=== PATIENT | male | born 1990 | race Caucasian/White ===

== ENCOUNTER 2018-07-01 08:33 | Emergency (ER) | payer OTHER ==
[~2018-07-01] VITALS: Ht 180.3 cm; Wt 90.0 kg
[2018-07-01] MEDS ORDERED: IV NORMAL SALINE 1,000ML 1,000 ML IV SCH (09:15)
[2018-07-01] MEDS ORDERED: IOHEXOL 240 MG/ML 50ML VIAL. ONE (09:27)
[2018-07-01] MEDS ORDERED: IOHEXOL 300 MG/ML 75 ML VIAL. IV ONE (10:00)
[2018-07-01 10:12] LABS: BASO % 0 % (0-3); EOS # 0.2 x10^3/uL (0.0-0.7); EOS % 4 % (0-3); HEMATOCRIT 43.4 % (39.0-53.0); HEMOGLOBIN 15.1 g/dL (13.0-17.5); LYMPH # 1.1 x10^3/uL (1.0-4.8); LYMPH % 22 % (24-48); MEAN CORPUSCULAR HEMOGLOBIN 29 pg (25-35); MEAN CORPUSCULAR HGB CONC 35 g/dL (31-37); MEAN CORPUSCULAR VOLUME 83 fL (79-100); MONO # 0.3 x10^3/uL (0.0-1.1); MONO % 5 % (0-9); NEUT # 3.7 x10^3uL (1.8-7.7); NEUT % 69 % (31-73); PLATELET COUNT 218 x10^3/uL (140-400); RED BLOOD COUNT 5.24 x10^6/uL (4.30-5.70); RED CELL DISTRIBUTION WIDTH 13.6 % (11.5-14.5); WHITE BLOOD COUNT 5.3 x10^3/uL (4.0-11.0)
[2018-07-01 10:22] LABS: AMORPHOUS SEDIMENT,UR PRESENT /HPF; BACTERIA,URINE 0 /HPF (0-FEW); BILIRUBIN,URINE NEG (NEG); CLARITY,URINE CLOUDY; COLOR,URINE YELLOW; GLUCOSE,URINE NEG (NEG); NITRITE,URINE NEG (NEG); RBC,URINE RARE /HPF (0-2); SQUAMOUS EPITHELIAL CELL,UR OCC /LPF; UROBILINOGEN,URINE 1 mg/dL (0.2 mg/dL); WBC,URINE RARE /HPF (0-4)
[2018-07-01 10:31] LABS: ALBUMIN 4.4 g/dL (3.4-5.0); ALBUMIN/GLOBULIN RATIO 1.7 (1.0-1.7); CALCIUM 9.2 mg/dL (8.5-10.1); CREATININE 1.3 mg/dL (0.7-1.3); GFR 66.7; POTASSIUM 3.9 mmol/L (3.5-5.1); TOTAL BILIRUBIN 0.4 mg/dL (0.2-1.0)
--- NOTE | 2018-07-01 10:48 | RAD ---
CT STUDY OF THE ABDOMEN AND PELVIS WITH CONTRAST Clinical indications: Abdominal pain and rectal bleeding. COMPARISON: None available. TECHNIQUE: After IV infusion of 75 cc of Omnipaque 300, helical CT scanning of the abdomen and pelvis was performed. GI contrast was administered per mouth. PQRS compliance Statement One or more of the following individualized dose reduction techniques were utilized for this study: 1. Automated exposure control 2. Adjustment of the mA and/or kV according to patient size 3. Use of iterative reconstruction technique FINDINGS: The spleen is mildly enlarged measuring 14.8 cm in length. The liver is normal. The gallbladder and pancreas are normal. No extra hepatic biliary ductal dilatation is seen. Nonobstructing punctate stones of the right kidney are seen. No renal mass or hydronephrosis or hydroureter or ureteral stone is evident. The urinary bladder wall is smooth. No focal aneurysmal dilatation of the abdominal aorta is seen. No enlarged abdominal or pelvic lymphadenopathy is evident. The appendix is normal. Terminal ileum is unremarkable. No obstructive bowel pattern is evident. No free air or free fluid or mesenteric edema is seen. Segmental wall thickening of the colon is evident. No lung base consolidation is evident. No lytic process is seen. IMPRESSION: There is segmental wall thickening of the colon from the splenic flexure on down into the rectosigmoid region. Also, there is short segmental wall thickening of the ascending colon just proximal to the hepatic flexure. The findings may be seen with inadequate distention of the colon or may be seen with colitis if there are clinical findings of such. Mild splenomegaly. Electronically signed by: Keny Tobias MD (07/01/2018 10:45 AM) [email or web address]
[2018-07-01] MEDS ORDERED: RANI150T21 PO ×2 (11:22→11:45)
--- NOTE | 2018-07-01 11:22 | PHYS DOC ---
Adult General Chief Complaint Chief Complaint: RECTAL BLEED [facility] HPI Patient is a 28 year old male male who presents with complaining of bloody stool. Patient states he had 2 episodes of rectal bleeding since 4 AM with large amount of bright red blood without pain. Patient complaining of lower abdominal discomfort and cramping pain and rated his pain 7/10. Patient denies nausea and vomiting, dizziness, chest pain, shortness of breath and palpitation. Patient states he had episodes of rectal bleeding since November of last year that repeated once or more often per week. Patient states he supposed to have colonoscopy and endoscopy while he was in [place] but was not performed. Patient states he has bowel movements once a day without constipation or diarrhea. Patient states he lost about 7 pounds for the last few weeks. Review of Systems Review of Systems Constitutional: Denies fever or chills [] Eyes: Denies change in visual acuity, redness, or eye pain [] HENT: Denies nasal congestion or sore throat [] Respiratory: Denies cough or shortness of breath [] Cardiovascular: No additional information not addressed in HPI [] GI: Reports abdominal pain, bloody stools , denies nausea and vomiting and diarrhea [] : Denies dysuria or hematuria [] Musculoskeletal: Denies back pain or joint pain [] Integument: Denies rash or skin lesions [] Neurologic: Denies headache, focal weakness or sensory changes [] Endocrine: Denies polyuria or polydipsia [] All other systems were reviewed and found to be within normal limits, except as documented in this note. Current Medications Current Medications Current Medications Medications (Trade) Dose Ordered Sig/Kris Start Time Stop Time Status Last Admin Dose Admin Iohexol (Omnipaque 240 Mg/ml) 50 ml STK-MED ONCE 07/01/18 09:27 07/01/18 09:28 DC Iohexol (Omnipaque 300 Mg/ml) 75 ml 1X ONCE 07/01/18 10:00 07/01/18 10:09 DC 07/01/18 10:23 75 ML Sodium Chloride 1,000 ml @ 1,000 mls/hr Q1H 07/01/18 09:15 07/01/18 10:14 DC 07/01/18 09:50 1,000 MLS/HR Allergies Allergies Allergies Coded Allergies Type Severity Reaction Last Updated Verified No Known Drug Allergies 07/01/18 No Physical Exam Physical Exam Constitutional: Well developed, well nourished, no acute distress, non-toxic appearance. [] HENT: Normocephalic, atraumatic, oropharynx moist, no oral exudates, nose normal. [] Eyes: PERRLA, EOMI, conjunctiva normal, no discharge. [] Neck: Normal range of motion, no tenderness, supple, no stridor. [] Cardiovascular:Heart rate regular rhythm, no murmur [] Lungs & Thorax: Bilateral breath sounds clear to auscultation [] Abdomen: Bowel sounds normal, soft, no tenderness, no masses, no pulsatile masses. 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 [] Back: No tenderness, no CVA tenderness. [] Extremities: No tenderness, no cyanosis, no clubbing, ROM intact, no edema. [] Neurologic: Alert and oriented X 3, normal motor function, normal sensory function, no focal deficits noted. [] Psychologic: Affect normal, judgement normal, mood normal. [] Current Patient Data Lab Results Laboratory Tests Test 07/01/18 09:53 White Blood Count 5.3 x10^3/uL (4.0-11.0) Red Blood Count 5.24 x10^6/uL (4.30-5.70) Hemoglobin 15.1 g/dL (13.0-17.5) Hematocrit 43.4 % (39.0-53.0) Mean Corpuscular Volume 83 fL (79-100) Mean Corpuscular Hemoglobin 29 pg (25-35) Mean Corpuscular Hemoglobin Concent 35 g/dL (31-37) Red Cell Distribution Width 13.6 % (11.5-14.5) Platelet Count 218 x10^3/uL (140-400) Neutrophils (%) (Auto) 69 % (31-73) Lymphocytes (%) (Auto) 22 % (24-48) L Monocytes (%) (Auto) 5 % (0-9) Eosinophils (%) (Auto) 4 % (0-3) H Basophils (%) (Auto) 0 % (0-3) Neutrophils # (Auto) 3.7 x10^3uL (1.8-7.7) Lymphocytes # (Auto) 1.1 x10^3/uL (1.0-4.8) Monocytes # (Auto) 0.3 x10^3/uL (0.0-1.1) Eosinophils # (Auto) 0.2 x10^3/uL (0.0-0.7) Basophils # (Auto) 0.0 x10^3/uL (0.0-0.2) Prothrombin Time 10.3 SEC (9.4-11.4) Prothrombin Time INR 1.0 (0.9-1.1) PTT 26 SEC (23-33) Urine Collection Type Void Urine Color Yellow Urine Clarity Cloudy Urine pH 7.5 Urine Specific [place] 1.020 Urine Protein Neg (NEG-TRACE) Urine Glucose (UA) Neg mg/dL (NEG) Urine Ketones (Stick) Neg mg/dL (NEG) Urine Blood Neg (NEG) Urine Nitrite Neg (NEG) Urine Bilirubin Neg (NEG) Urine Urobilinogen Dipstick 1 mg/dL (0.2 mg/dL) Urine Leukocyte Esterase Neg (NEG) Urine RBC Rare /HPF (0-2) Urine WBC Rare /HPF (0-4) Urine Squamous Epithelial Cells Occ /LPF Urine Amorphous Sediment Present /HPF Urine Bacteria 0 /HPF (0-FEW) Sodium Level 141 mmol/L (136-145) Potassium Level 3.9 mmol/L (3.5-5.1) Chloride Level 103 mmol/L (98-107) Carbon Dioxide Level 29 mmol/L (21-32) Anion Gap 9 (6-14) Blood Urea Nitrogen 15 mg/dL (8-26) Creatinine 1.3 mg/dL (0.7-1.3) Estimated GFR (Cockcroft-Gault) 66.7 BUN/Creatinine Ratio 12 (6-20) Glucose Level 91 mg/dL (70-99) Calcium Level 9.2 mg/dL (8.5-10.1) Total Bilirubin 0.4 mg/dL (0.2-1.0) Aspartate Amino Transferase (AST) 25 U/L (15-37) Alanine Aminotransferase (ALT) 31 U/L (16-63) Alkaline Phosphatase 75 U/L (46-116) Total Protein 7.0 g/dL (6.4-8.2) Albumin 4.4 g/dL (3.4-5.0) Albumin/Globulin Ratio 1.7 (1.0-1.7) Lipase 140 U/L (73-393) EKG EKG [] Radiology/Procedures Radiology/Procedures [address] [id number] IMAGING REPORT Signed PATIENT: CAYLA GARCIA ACCOUNT: [id number] : 1990 LOCATION: ER AGE: 28 SEX: M EXAM STATUS: REG ER ORD. PHYSICIAN: KAMRON HWANG MD REASON: rectal bleeding and abdominal pain PROCEDURE: CT ABD PELV W/ORAL&IV CONTRAST CT STUDY OF THE ABDOMEN AND PELVIS WITH CONTRAST Clinical indications: Abdominal pain and rectal bleeding. COMPARISON: None available. TECHNIQUE: After IV infusion of 75 cc of Omnipaque 300, helical CT scanning of the abdomen and pelvis was performed. GI contrast was administered per mouth. PQRS compliance Statement One or more of the following individualized dose reduction techniques were utilized for this study: 1. Automated exposure control 2. Adjustment of the mA and/or kV according to patient size 3. Use of iterative reconstruction technique FINDINGS: The spleen is mildly enlarged measuring 14.8 cm in length. The liver is normal. The gallbladder and pancreas are normal. No extra hepatic biliary ductal dilatation is seen. Nonobstructing punctate stones of the right kidney are seen. No renal mass or hydronephrosis or hydroureter or ureteral stone is evident. The urinary bladder wall is smooth. No focal aneurysmal dilatation of the abdominal aorta is seen. No enlarged abdominal or pelvic lymphadenopathy is evident. The appendix is normal. Terminal ileum is unremarkable. No obstructive bowel pattern is evident. No free air or free fluid or mesenteric edema is seen. Segmental wall thickening of the colon is evident. No lung base consolidation is evident. No lytic process is seen. IMPRESSION: There is segmental wall thickening of the colon from the splenic flexure on down into the rectosigmoid region. Also, there is short segmental wall thickening of the ascending colon just proximal to the hepatic flexure. The findings may be seen with inadequate distention of the colon or may be seen with colitis if there are clinical findings of such. Mild splenomegaly. Electronically signed by: Miladys Tobias MD (07/01/2018 10:45 AM) [facility] DICTATED AND SIGNED BY: MILADYS TOBIAS MD DATE: 07/01/18 1045 CC: AMILCAR BOBO DO; KAMRON HWANG MD ~ Course & Med Decision Making Course & Med Decision Making Pertinent Labs and Imaging studies reviewed. (See chart for details) Evaluation of patient in ER showed 28-year-old male patient with complaining of intermittent episodes of rectal bleeding with abdominal pain. Patient had unremarkable physical exam and labs. CT of abdomen and pelvis showed colitis. Patient informed about this result and is to follow-up with GI specialist for colonoscopy for possible ulcerative colitis or other GI problems. Dragon Disclaimer Dragon Disclaimer This electronic medical record was generated, in whole or in part, using a voice recognition dictation system. 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 Sherman office in one or 2 days to make an appointment Scripts Ranitidine Hcl (ZANTAC) 150 Mg Tablet 1 TAB PO BID for dyspepcia, #14 TAB 0 Refills Prov: KAMRON HWANG MD 07/01/18 Problem Qualifiers KAMRON HWANG MD Jul 01, 2018 11:22
[2018-07-01 11:40] VITALS: BP 139/83
== END 2018-07-01 11:40 | disposition home or self-care (01) ==
LOC: ER 08:33
DX: K62.5 Hemorrhage of anus and rectum (principal); K52.9 Noninfective gastroenteritis and colitis, unspecified
CPT/HCPCS: 36415; 74177; 80053; 81001; 83690; 85025; 85610; 85730; 96360; 96361; 99284; Q9967; J7030

== ENCOUNTER 2019-10-21 20:46 | Emergency (ER) | payer OTHER ==
[~2019-10-21] VITALS: Ht 177.8 cm; Wt 90.9 kg
[~2019-10-21 20:46] MED LIST: RANI-376 PO
--- NOTE | 2019-10-21 20:53 | PHYS DOC ---
Past History Past Medical History: No Pertinent History, Other Past Surgical History: Other Smoking: Non-smoker Alcohol Use: Rarely Drug Use: None General Adult EDM: Chief Complaint: right thumb laceration HPI: HPI: Patient is a 29 year old male who presents for evaluation of a puncture wound laceration to his right thumb. Patient was at home picking up glass from a broken picture frame when more of the glass broke and went into his finger. There is a V-shaped approximately less than 1 cm laceration to the dorsal aspect of the proximal part of that thumb. No other injuries reported. There was some scant bleeding prior to arrival Review of Systems: Review of Systems: Constitutional: Denies fever or chills Eyes: Denies change in visual acuity HENT: Denies nasal congestion or sore throat Respiratory: Denies cough or shortness of breath Cardiovascular: Denies chest pain or edema GI: Denies abdominal pain, nausea, vomiting, bloody stools or diarrhea : Denies dysuria Musculoskeletal: Denies back pain or joint pain, puncture wound right thumb Integument: Denies rash Neurologic: Denies headache, focal weakness or sensory changes Endocrine: Denies polyuria or polydipsia Lymphatic: Denies swollen glands Psychiatric: Denies depression or anxiety Heart Score: Risk Factors: Risk Factors: DM, Current or recent (<one month) smoker, HTN, HLP, family history of CAD, obesity. Risk Scores: Score 0 - 3: 2.5% MACE over next 6 weeks - Discharge Home Score 4 - 6: 20.3% MACE over next 6 weeks - Admit for Clinical Observation Score 7 - 10: 72.7% MACE over next 6 weeks - Early Invasive Strategies Allergies: Allergies: Allergies Coded Allergies Type Severity Reaction Last Updated Verified No Known Drug Allergies 07/01/18 No Physical Exam: PE: Constitutional: Well developed, well nourished, mild acute distress, non-toxic appearance. [] HENT: Normocephalic, atraumatic, bilateral external ears normal, oropharynx moist, no oral exudates, nose normal. [] Eyes: PERRLA, EOMI, conjunctiva normal, no discharge. [] Neck: Normal range of motion, no tenderness, supple. [] Cardiovascular:Heart rate regular rhythm, no murmur [] Lungs & Thorax: Bilateral breath sounds clear to auscultation [] Abdomen: Bowel sounds normal, soft, no tenderness, no masses, no pulsatile masses. [] Skin: Warm, dry, no erythema, no rash, less than 1 cm V-shaped laceration right thumb. Full range of motion with no focal deficits [] Back: No tenderness. [] Extremities: No tenderness, no cyanosis, no clubbing, ROM intact, no edema. [] Neurologic: Alert and oriented, normal motor function, normal sensory function, no focal deficits noted. [] Psychologic: Affect normal, judgement normal, mood normal. [] EKG: EKG: [] Radiology/Procedures: Radiology/Procedures: [address] [id number] IMAGING REPORT Signed PATIENT: CAYLA GARCIA ACCOUNT: [id number] : 1990 LOCATION: ER AGE: 29 SEX: M EXAM STATUS: REG ER ORD. PHYSICIAN: SHAHAB SPENCER DO REASON: cut with glass on thumb PROCEDURE: FINGER(S) RIGHT FINGER(S) RIGHT History: Cut with glass Comparison: None. Findings: 3 views of the right hand with attention to the first digit are submitted. No acute fracture, dislocation, or radiopaque foreign body is identified. Impression: 1. No acute radiographic abnormality is identified. Electronically signed by: Ivania Chapman MD (10/21/2019 9:39 PM) [facility] DICTATED AND SIGNED BY: IVANIA CHAPMAN MD DATE: 10/21/192138 CC: LUTHER VARMA; SHAHAB SPENCER DO ~ Course & Med Decision Making: Course & Med Decision Making Pertinent Labs and Imaging studies reviewed. (See chart for details) [] Dragon Disclaimer: Dragon Disclaimer: This electronic medical record was generated, in whole or in part, using a voice recognition dictation system. Departure Departure: Impression: Primary Impression: Thumb laceration Qualified Codes: S61.011A - Laceration without foreign body of right thumb without damage to nail, initial encounter Disposition: 01 HOME/RESIDENCE PRIOR TO ADM Condition: STABLE Referrals: AMILCAR BOBO DO (PCP) Patient Instructions: Laceration Care, Adult Additional Instructions: Sutures out in about 7 days, keep area clean and dry, if redness, pus or drainage starts immediately start the antibiotic. return if worsen Scripts Cephalexin (KEFLEX) 250 Mg Capsule 1 CAP PO QID for skin infection for 7 Days, #28 CAP 0 Refills Prov: SHAHAB SPENCER DO 10/21/19 Justification of Admission: Justification of Admission: Justification of Admission Dx: N/A Laceration Repair Lac Repair Indication: right thumb laceration Procedure: The patient was placed in the appropriate position and anesthesia around the right thumb cut site. The area was then cleaned with saline and betadine. The laceration was closed with 2 4-0 nylon sutures. The wound area was then dressed with triple antibiotic. Total repaired wound length: 1cm. Other Items: xray of thumb failed to reveal foreign body The patient tolerated the procedure well Complications: no complication SHAHAB SPENCER DO Oct 21, 2019 20:53
[2019-10-21 20:55] VITALS: BP 138/85
[2019-10-21] MEDS ORDERED: LIDOCAINE 2% 20 ML VIAL. IJ ONE (21:00)
--- NOTE | 2019-10-21 21:42 | RAD ---
FINGER(S) RIGHT History: Cut with glass Comparison: None. Findings: 3 views of the right hand with attention to the first digit are submitted. No acute fracture, dislocation, or radiopaque foreign body is identified. Impression: 1. No acute radiographic abnormality is identified. Electronically signed by: Ryan Niño MD (10/21/2019 9:39 PM) [facility]
[2019-10-21] MEDS ORDERED: CEPH-263 PO (22:24)
[2019-10-21] MEDS ORDERED: BACITRACIN ZINC TOPICAL OINT PACKET. TP ONE (23:00)
== END 2019-10-21 22:33 | disposition home or self-care (01) ==
LOC: ER 20:46
DX: S61.011A Laceration without foreign body of right thumb without damage to nail, initial encounter (principal); W25.XXXA Contact with sharp glass, initial encounter; Y93.89 Activity, other specified; Y92.89 Other specified places as the place of occurrence of the external cause; Y99.8 Other external cause status
CPT/HCPCS: 12001; 73140; 99283; J2001

== ENCOUNTER 2020-02-24 17:42 | Emergency (ER) | payer OTHER ==
[~2020-02-24] VITALS: Ht 177.8 cm; Wt 90.9 kg
[~2020-02-24 17:42] MED LIST changes: +CEPH-263 PO
--- NOTE | 2020-02-24 18:25 | PHYS DOC ---
Past History Past Medical History: No Pertinent History, Other Past Surgical History: No Surgical History Smoking: Non-smoker Alcohol Use: Rarely Drug Use: None Adult General Chief Complaint Chief Complaint: NEURO SYMPTOMS/DEFICITS [facility] HPI Patient is 30-year-old male who presents to the emergency room complaining of a headache. Patient has a history of ocular migraines and states that this started very similar to 1 of those. He initially got spots and then developed pain behind his eye. This is very typical of his headaches. He then took some Excedrin and laid down. When he woke up he felt numbness in his face and arm. He does not typically get numbness but at the time he did have severe headache. The numbness lasted about 15 minutes and has now completely resolved. He denies any weakness. He did not have any other neurologic deficits. His family recommended that he come to make sure that he was not having a TIA. Review of Systems Review of Systems Complete ROS is negative unless otherwise documented in HPI Allergies Allergies Allergies Coded Allergies Type Severity Reaction Last Updated Verified No Known Drug Allergies 07/01/18 No Physical Exam Physical Exam General: Awake, alert, NAD. Well Nourished, well hydrated. Cooperative HEENT: Atraumatic, EOMI, PERRL, airway patent, moist oral mucosa Neck: Supple, trachea midline Respiratory: CTA bilaterally, normal effort, no wheezing/crackles CV: RRR, no murmur, cap refill <2 GI: Soft, nondistended, nontender, no masses MSK: No obvious deformities Skin: Warm, dry, intact Neuro: A&O x3, speech NL, 5/5 strength in BUE/BLE distally and proximally, CN 2- 12 intact, cerebellar testing normal Psych: Normal affect, normal mood, not suicidal or homicidal Current Patient Data Vital Signs Vital Signs Date Time Temp Pulse Resp B/P (MAP) Pulse Ox O2 Delivery O2 Flow Rate FiO2 02/24/20 17:45 97.9 74 20 118/83 (95) 100 Room Air EKG EKG [] Radiology/Procedures Radiology/Procedures [] Heart Score Risk Factors: Risk Factors: DM, Current or recent (<one month) smoker, HTN, HLP, family history of CAD, obesity. Risk Scores: Risk Factors: DM, Current or recent (<one month) smoker, HTN, HLP, family history of CAD, obesity. Course & Med Decision Making Course & Med Decision Making Pertinent Labs and Imaging studies reviewed. (See chart for details) Patient is 30-year-old male who presents to the emergency room with atypical headache. He did have paresthesias that were transient and lasted less than 10 minutes. It is highly unlikely that he had a TIA. NIH score is 0. He does not have any risk factors for TIA and these occurred during an ocular migraine. 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 He is feeling significantly better. He has a normal neurologic exam including normal gait, intact cranial nerves, normal strength, normal cerebellar testing, and intact sensation. He has no history of arrhythmias, bruising, clotting, cardiac disease, drug abuse, diabetes, vascular disease making his risk for stroke very low. We will treat his migraine. Patient also states that he has reflux and is requesting something for that. Family requested a CT of the head. I have discussed with the patient that a CT is used to evaluate for a brain mass or a head bleed and does not help with evaluating for a TIA. Given his symptoms intracranial hemorrhage does not appear to be likely as this is his typical migraine without onset of severe "worse headache of my life" pain. His improving symptoms and normal exam after just excedrin makes emergent neurologic pathology highly unlikely. I have discussed with them that CT does not show stroke acutely and patient does not have symptoms consistent with stroke at this time. Patient continued to be insistent that he would like a CT head and lab wo rk. These are not indicated at this time and can be deferred to outpatient neurology evaluation. Patient is symptom free without neurologic symptoms/deficits. I have discussed the reasons we are not doing a stroke evaluation several times while he was in the Emergency Room. We have discussed that he can follow up with neurology for outpatient work up if he continues to have concerns. Patient's test results and vitals while in the ED were fully reviewed and discussed with the patient. Patient is stable and at this time does not need admission to the hospital. We have discussed strict return precautions and the importance of following up with their Primary Care Physician. Patient stated understanding and was given an opportunity to ask any questions. He was given resources to follow up with Dr Arzola if concerns continue. Kristel Disclaimer Kristel Disclaimer This electronic medical record was generated, in whole or in part, using a voice recognition dictation system. Departure Departure: Impression: Primary Impression: Ocular migraine Disposition: 01 DC HOME SELF CARE/HOMELESS Condition: STABLE Referrals: LUTHER VARMA (PCP) Patient Instructions: Migraine Headache VOLODYMYR VILLAGOMEZ MD Feb 24, 2020 18:25
[2020-02-24] MEDS ORDERED: LIDO:MAALOX 1:1 20 ML SINGLE DOSE. PO ONE (18:30)
[2020-02-24] MEDS ORDERED: SUMAtriptan SUCC 6 MG/0.5 ML VIAL SQ ONE (18:30)
[2020-02-24 18:40] VITALS: BP 118/73
[2020-02-24] MEDS ORDERED: LORazepam 1 MG TABLET PO ONE (19:30)
== END 2020-02-24 19:50 | disposition home or self-care (01) ==
LOC: ER 17:42
DX: G43.809 Other migraine, not intractable, without status migrainosus (principal)
CPT/HCPCS: 96372; 99283; J3030